=== PATIENT | male | born 1985 | race African-American/Black ===

== ENCOUNTER 2024-03-03 21:48 | Emergency (ER) | payer BC, MEDICAID ==
[~2024-03-03] VITALS: Ht 180.3 cm; Wt 94.8 kg
[2024-03-03] MEDS ORDERED: mounjaro (22:01)
[2024-03-03] MEDS ORDERED: HYDROMORPHONE 1 MG/1 ML DISP.SYRIN ONE (22:22)
[2024-03-03] MEDS ORDERED: ONDANSETRON ODT 4 MG TAB.RAPDIS ONE (22:22)
[2024-03-03] MEDS ORDERED: KETOROLAC TROMETHAMINE 30 MG INJ ONE (22:22)
[2024-03-03] MEDS: KETOROLAC TROMETHAMINE 30 MG INJ IM ONE (22:27)
[2024-03-03] MEDS: HYDROMORPHONE 1 MG/1 ML DISP.SYRIN IM ONE (22:27)
[2024-03-03] MEDS: ONDANSETRON ODT 4 MG TAB.RAPDIS SL ONE (22:28)
[2024-03-04] MEDS ORDERED: NAPR-1009 PO (00:33)
[2024-03-04 01:13] VITALS: BP 128/79; TEMP 98.4; O2SAT 98
== END 2024-03-04 01:15 | disposition home or self-care (01) ==
LOC: ER 21:50
DX: S89.82XA Other specified injuries of left lower leg, initial encounter (principal); E11.9 Type 2 diabetes mellitus without complications; Z79.899 Other long term (current) drug therapy; X58.XXXA Exposure to other specified factors, initial encounter; Y93.67 Activity, basketball; Y92.89 Other specified places as the place of occurrence of the external cause; Y99.8 Other external cause status
CPT/HCPCS: 99285; 29505; 73700; 73564; 96372 ×2; J1885; J1170; A4606; A4663; Q0162